=== PATIENT | male | born 1970 | race Caucasian/White ===

== ENCOUNTER 2023-10-09 10:08 | Day surgery (SDC) | payer OTHER ==
[~2023-10-09] VITALS: Ht 170.2 cm; Wt 102.1 kg
[2023-10-09] MEDS ORDERED: fentaNYL citrate 0.05 MG/ML VIAL ONE (11:30)
[2023-10-09] MEDS ORDERED: LIDOCAINE 2% 100 MG/5 ML UJET TP ONE (11:30)
[2023-10-09] MEDS ORDERED: fentaNYL citrate 0.05 MG/ML VIAL IVP ONE (12:40)
== END 2023-10-09 12:55 | disposition home or self-care (01) ==
LOC: MDS 10:08 → MMU 10:14 → MDS 12:55
PROVIDERS: ATTEND Internal Medicine Gastroenterology
DX: Z12.11 Encounter for screening for malignant neoplasm of colon (principal); I10 Essential (primary) hypertension; J45.909 Unspecified asthma, uncomplicated; E78.00 Pure hypercholesterolemia, unspecified; E11.9 Type 2 diabetes mellitus without complications; Z79.899 Other long term (current) drug therapy; Z98.890 Other specified postprocedural states
CPT/HCPCS: 45378; 82948; J3010